=== PATIENT | female | born 1985 | race Caucasian/White ===

== ENCOUNTER 2017-09-12 05:43 | Inpatient (IN) | payer BC ==
[~2017-09-12] VITALS: Ht 165.1 cm; Wt 95.5 kg
[~2017-09-12 05:43] MED LIST: ASPI-515 PO; IBUP-1223 PO; LACTATED RINGERS 1,000 ML IV SCH; OXYC-302 PO; OXYTOCIN 30U/ 0.9% NaCL 500ML 500 ML IV SCH; PREN1TAB60 PO; SENN-1 PO
[2017-09-12] MEDS ORDERED: LACTATED RINGERS 1,000 ML IV SCH (06:00)
[2017-09-12] MEDS ORDERED: SODIUM CITRATE/CITRIC ACID 30 ML UDC PO ONE (06:00)
[2017-09-12] MEDS ORDERED: LACTATED RINGERS 1,000 ML IVBOLUS ONE (06:00)
[2017-09-12] MEDS ORDERED: METOCLOPRAMIDE 5 MG/ML, 2ML IV ONE (06:00)
[2017-09-12] MEDS ORDERED: PLEASE ENTER HEIGHT AND WEIGHT MC SCH (06:00)
[2017-09-12 06:02] VITALS: BP 132/90
[2017-09-12] MEDS ORDERED: METOCLOPRAMIDE 5 MG/ML, 2ML ONE (06:05)
[2017-09-12] MEDS ORDERED: OXYTOCIN 30U/ 0.9% NaCL 500ML 500 ML ONE (06:05)
[2017-09-12] MEDS ORDERED: SODIUM CITRATE/CITRIC ACID 30 ML UDC ONE (06:05)
[2017-09-12] MEDS ORDERED: NEWBORN KIT ONE (06:05)
[2017-09-12 06:19] LABS: BASOPHILS # (AUTO) 0.04 x10^3/uL (0-0.1); BASOPHILS % (AUTO) 0 % (0-1); EOSINOPHILS # (AUTO) 0.07 x10^3/uL (0-0.4); EOSINOPHILS % (AUTO) 1 % (1-7); LYMPHOCYTES % (AUTO) 31 % (22-44); MD NO; MEAN CORPUSCULAR HEMOGLOBIN 30.4 pg (27.0-34.8); MEAN CORPUSCULAR HGB CONC 34.6 g/dL (32.4-35.8); MEAN CORPUSCULAR VOLUME 87.7 fL (80-100); MEAN PLATELET VOLUME 8.8 fL (7.4-10.4); MONOCYTES % (AUTO) 5 % (2-9); NEUTROPHILS # (AUTO) 7.31 x10^3/uL (1.8-6.8); NEUTROPHILS % (AUTO) 63 % (42-75); PLATELET COUNT 243 x10^3/uL (130-400); RED BLOOD COUNT 4.69 x10^6/uL (3.82-5.3); RED CELL DISTRIBUTION WIDTH 13.9 % (9.6-15.2)
[2017-09-12] MEDS ORDERED: ONDANSETRON 2MG/ML, 2ML ONE (07:10)
[2017-09-12] MEDS ORDERED: CEFAZOLIN 1,000 MG ONE (07:10)
[2017-09-12] MEDS ORDERED: FENTANYL PF 100 MCG/2ML ONE (07:10)
[2017-09-12] MEDS ORDERED: OXYTOCIN 10 UNITS/ML, 1ML ONE (07:10)
[2017-09-12] MEDS ORDERED: HYDROmorphone 2 MG/ML, 1ML ONE (07:11)
[2017-09-12] MEDS: LACTATED RINGERS 1,000 ML IV SCH ×5 (07:28→23:28)
[2017-09-12] MEDS: OXYTOCIN 30U/ 0.9% NaCL 500ML 500 ML IV SCH ×2 (07:28→17:29)
[2017-09-12] MEDS ORDERED: METHYLERGONOVINE 0.2 MG/ML IM PRN (07:30)
[2017-09-12] MEDS ORDERED: morphine SULFATE 10 MG/ML, 1ML IVPush PRN ×2 (07:30)
[2017-09-12] MEDS ORDERED: MISOPROSTOL 200 MCG TABLET PR PRN (07:30)
[2017-09-12] MEDS ORDERED: OXYcodone/APAP 5/325MG TABLET PO PRN ×2 (07:30)
[2017-09-12] MEDS ORDERED: CARBOPROST TROMETHAMINE 250 MCG/ML, 1ML IM PRN (07:30)
[2017-09-12] MEDS ORDERED: ONDANSETRON 2MG/ML, 2ML IV PRN (07:30)
[2017-09-12] MEDS ORDERED: IBUPROFEN 600 MG TABLET PO PRN (07:30)
[2017-09-12] MEDS ORDERED: ACETAMINOPHEN 325 MG TABLET PO PRN (07:30)
[2017-09-12] MEDS: PRENATAL VIT/IRON/FA 1 EACH TABLET PO SCH (09:00)
[2017-09-12 10:45] VITALS: BP 114/76
[2017-09-12] MEDS ORDERED: KETOROLAC 30 MG/1 ML ONE (10:54)
[2017-09-12] MEDS: KETOROLAC 30 MG/1 ML IVPush SCH ×3 (10:59→23:18)
[2017-09-12 14:45] VITALS: BP 122/81
[2017-09-12 16:32] LABS: BASOPHILS # (AUTO) 0.05 x10^3/uL (0-0.1); BASOPHILS % (AUTO) 0 % (0-1); EOSINOPHILS # (AUTO) 0.01 x10^3/uL (0-0.4); EOSINOPHILS % (AUTO) 0 % (1-7); LYMPHOCYTES # (AUTO) 2.23 x10^3/uL (1-3.4); LYMPHOCYTES % (AUTO) 15 % (22-44); MD NO; MEAN CORPUSCULAR HEMOGLOBIN 29.5 pg (27.0-34.8); MEAN CORPUSCULAR HGB CONC 33.5 g/dL (32.4-35.8); MEAN PLATELET VOLUME 8.8 fL (7.4-10.4); MONOCYTES # (AUTO) 0.61 x10^3/uL (0.2-0.8); MONOCYTES % (AUTO) 4 % (2-9); NEUTROPHILS # (AUTO) 12.41 x10^3/uL (1.8-6.8); NEUTROPHILS % (AUTO) 81 % (42-75); PLATELET COUNT 231 x10^3/uL (130-400); RED BLOOD COUNT 4.26 x10^6/uL (3.82-5.3); RED CELL DISTRIBUTION WIDTH 14.4 % (9.6-15.2)
[2017-09-12 20:40] VITALS: BP 130/88
[2017-09-13] VITALS: BP 110/72
[2017-09-13] MEDS: OXYTOCIN 30U/ 0.9% NaCL 500ML 500 ML IV SCH (03:28)
[2017-09-13] MEDS: LACTATED RINGERS 1,000 ML IV SCH ×2 (03:28→07:28)
[2017-09-13] MEDS: KETOROLAC 30 MG/1 ML IVPush SCH ×4 (05:19→23:39)
[2017-09-13 07:25] VITALS: BP 123/80
[2017-09-13] MEDS: DOCUSATE 100 MG CAPSULE PO PRN ×2 (08:51→20:43)
[2017-09-13] MEDS: PRENATAL VIT/IRON/FA 1 EACH TABLET PO SCH (09:00)
[2017-09-13] MEDS ORDERED: SIMETHICONE 80 MG CHEW TAB PO PRN (12:30)
[2017-09-13] MEDS: SIMETHICONE 80 MG CHEW TAB PO PRN ×2 (14:20→20:43)
[2017-09-13 19:30] VITALS: BP 128/91
[2017-09-14] MEDS: KETOROLAC 30 MG/1 ML IVPush SCH ×2 (05:25→11:47)
[2017-09-14] MEDS: SIMETHICONE 80 MG CHEW TAB PO PRN (05:29)
[2017-09-14] MEDS: PRENATAL VIT/IRON/FA 1 EACH TABLET PO SCH (08:17)
[2017-09-14 08:18] VITALS: BP 130/85
[2017-09-14] MEDS ORDERED: IBUP-1222 PO (09:39)
[2017-09-14] MEDS ORDERED: SIME80TA15 PO (09:40)
[2017-09-14] MEDS ORDERED: IBUPROFEN 600 MG TABLET ONE (11:33)
[2017-09-14] MEDS ORDERED: IBUPROFEN 600 MG TABLET PO PRN (21:30)
== END 2017-09-14 12:50 | disposition home or self-care (01) | DRG 766 ==
LOC: LDIP 05:43 → 2NW 10:45
PROVIDERS: ADMIT Obstetrics & Gynecology; ATTEND Obstetrics & Gynecology
PROC: 10D00Z1 Extraction of Products of Conception, Low, Open Approach (ICD-10-PCS; principal; 2017-09-12)
PROC: 0UB70ZZ Excision of Bilateral Fallopian Tubes, Open Approach (ICD-10-PCS; 2017-09-12)
DX: O34.211 Maternal care for low transverse scar from previous cesarean delivery (principal); K66.0 Peritoneal adhesions (postprocedural) (postinfection); Z30.2 Encounter for sterilization; Z37.0 Single live birth; Z3A.39 39 weeks gestation of pregnancy; O99.62 Diseases of the digestive system complicating childbirth
CPT/HCPCS: 36415; 85025; 86850; 86900; 88302; J0690; J1170; J1885; J2405; J3010; J2590; J2765; J7120

== ENCOUNTER 2019-01-19 10:24 | Emergency (ER) | payer BC ==
[~2019-01-19] VITALS: Ht 165.1 cm; Wt 90.0 kg
[~2019-01-19 10:24] MED LIST changes: +IBUP-1222 PO; -LACTATED RINGERS 1,000 ML IV SCH; -OXYTOCIN 30U/ 0.9% NaCL 500ML 500 ML IV SCH; -SENN-1 PO; +SENN-92 PO; +SIME80TA15 PO
[2019-01-19 10:57] LABS: BASOPHILS # (AUTO) 0.06 x10^3/uL (0-0.1); BASOPHILS % (AUTO) 1 % (0-1); EOSINOPHILS # (AUTO) 0.17 x10^3/uL (0-0.4); EOSINOPHILS % (AUTO) 1 % (1-7); LYMPHOCYTES # (AUTO) 2.67 x10^3/uL (1-3.4); LYMPHOCYTES % (AUTO) 23 % (22-44); MD NO; MEAN CORPUSCULAR HEMOGLOBIN 27.9 pg (27.0-34.8); MEAN CORPUSCULAR HGB CONC 32.3 g/dL (32.4-35.8); MEAN CORPUSCULAR VOLUME 86.3 fL (80-100); MEAN PLATELET VOLUME 7.7 fL (7.4-10.4); MONOCYTES # (AUTO) 0.53 x10^3/uL (0.2-0.8); MONOCYTES % (AUTO) 5 % (2-9); NEUTROPHILS # (AUTO) 8.23 x10^3/uL (1.8-6.8); NEUTROPHILS % (AUTO) 71 % (42-75); PLATELET COUNT 323 x10^3/uL (130-400); RED BLOOD COUNT 5.33 x10^6/uL (3.82-5.3); RED CELL DISTRIBUTION WIDTH 13.1 % (9.6-15.2)
--- NOTE | 2019-01-19 11:10 | NUR ---
[facility]
--- NOTE | 2019-01-19 11:32 | NUR ---
TO ULTRASOUND VIA [facility]
[2019-01-19 12:08] LABS: MICROSCOPIC AUTO
[2019-01-19 12:14] LABS: CULTURE INDICATED? NO
--- NOTE | 2019-01-19 12:16 | NUR ---
LING COMPLETED AND MD AT BEDSIDE EXAMINING PT
--- NOTE | 2019-01-19 12:55 | NUR ---
SHYAM FOR PELVIC EXAM. PT TOLERATED WELL
[2019-01-19 13:19] VITALS: BP 120/80
== END 2019-01-19 13:42 | disposition home or self-care (01) ==
LOC: ED 13:07
DX: N92.0 Excessive and frequent menstruation with regular cycle (principal); N93.8 Other specified abnormal uterine and vaginal bleeding
CPT/HCPCS: 36415; 76830; 81001; 84703; 85025; 99284